=== PATIENT | male | born 1945 | race Caucasian/White ===

== ENCOUNTER → 2020-06-06 11:25 | Outpatient (CLI) | payer MEDICARE, OTHER, SELFPAY ==
[2020-06-06 10:12] VITALS: BMI 17.5
[2020-06-06 12:37] LABS: International Normalized Ratio 1.1; Prothrombin Time (Protime)PT. 14.1 SECONDS (11.7-14.9)
== END ==
PROVIDERS: PCP Student in an Organized Health Care Education/Training Program; Referring Provider Internal Medicine Critical Care Medicine; Visit Provider Internal Medicine Critical Care Medicine
DX: R91.8 Other nonspecific abnormal finding of lung field (principal); Z98.890 Other specified postprocedural states
CPT/HCPCS: 36415; 85610; 85730

== ENCOUNTER → 2020-06-23 09:26 | Outpatient (CLI) | payer MEDICARE, OTHER, SELFPAY ==
[2020-06-06 10:12] VITALS: BMI 17.5
[2020-06-23 09:53] VITALS: TEMP 37.2; BMI 17.5
--- NOTE | 2020-06-23 10:15 | NURSING ---
PT SPOKE AT LENGTH WITH THIS RN AND DR CHARLTON. QUESTIONS ANSWERED. PT WISHES TO OPT OUT OF BIOPSY. STS HE IS SCARED THAT HE WILL GO FROM A BAD TO A WORSE PLACE. PT REASSURED THAT IF HE DECIDES IN THE FUTURE HE WISHES TO HAVE THE BIOPSY, THAT HE CAN RESCHEDULE. PT WHEELED TO MAIN ENTRANCE BY THIS RN. PRESENT FOR CONVERSATIONS AND STS SHE WILL BE IN TOUCH WITH HOSPICE, APPT WITH DR FELICIANO ON 07/07.
--- NOTE | 2020-06-23 10:57 | NURSING ---
THIS RN CALLED AND SPOKE WITH DR FELICIANO'S NEEDLE POLISHER. OFFICE MADE AWARE THAT THE PT DID NOT WISH TO COMPLETE THE BIOPSY.
== END ==
PROVIDERS: PCP Student in an Organized Health Care Education/Training Program; Referring Provider Internal Medicine Critical Care Medicine; Visit Provider Internal Medicine Critical Care Medicine
DX: R69 Illness, unspecified (principal)